=== PATIENT | female | born 1990 | race Caucasian/White ===

== ENCOUNTER → 2021-11-30 | Outpatient (CLI) | payer OTHER ==
--- NOTE | 2021-11-30 17:22 | XR ---
EXAMINATION TYPE: XR thoracic spine 2V DATE OF EXAM: 11/30/2021 5:15 PM INDICATION: Patient age:Female; 31 years old; Reason for study: S46.212D; back pain COMPARISON: None TECHNIQUE: 2 views of the thoracic spine in Frontal and lateral projections. FINDINGS: No evidence of acute fracture. There is no evidence of significant disk space narrowing or loss of v ertebral body height. There is normal alignment of the thoracic vertebral bodies. IMPRESSION: No acute osseous pathology.
--- NOTE | 2021-11-30 17:23 | XR ---
EXAMINATION TYPE: XR shoulder complete LT DATE OF EXAM: 11/30/2021 5:15 PM INDICATION: Patient age:Female; 31 years old; Reason for study: S46.212D; pain COMPARISON: None TECHNIQUE: The left shoulder was examined in AP, internally rotated and axillary projections. FINDINGS: No evidence of acute osseous pathology, joint dislocation, or soft tissue swelling. The remaining por tions of the visualized chest are unremarkable. IMPRESSION: No acute osseous pathology.
== END | disposition home or self-care (01) ==
LOC: RADXRMAIN 16:45
PROVIDERS: ATTEND Emergency Medicine
DX: S46.212D Strain of muscle, fascia and tendon of other parts of biceps, left arm, subsequent encounter (principal); X58.XXXD Exposure to other specified factors, subsequent encounter
CPT/HCPCS: 72070

== ENCOUNTER 2023-10-18 04:42 | Emergency (ER) | payer BC ==
[2023-10-18 05:10] VITALS: RESP 18
[2023-10-18] MEDS: SODIUM CHLORIDE 0.9% 1,000 ML IV STA (06:07)
[2023-10-18] MEDS: ONDANSETRON 4 MG/2 ML VIAL IVP STA (06:08)
[2023-10-18] MEDS: IBUPROFEN 600 MG TAB PO STA (06:21)
[2023-10-18 06:31] LABS: ALT 18 U/L (4-34); AST 25 U/L (14-36); African American GFR (CKD) >90 (>60 ml/min/1.73 sqM); Albumin 4.4 g/dL (3.5-5.0); Alkaline Phosphatase 55 U/L (38-126); Anion Gap 10 mmol/L; Blood Urea Nitrogen 9 mg/dL (7-17); Calcium 9.2 mg/dL (8.4-10.2); Carbon Dioxide 22 mmol/L (22-30); Chloride 102 mmol/L (98-107); Glucose 112 mg/dL (74-99); Non-African American GFR(CKD) >90 (>60 ml/min/1.73 sqM); Potassium 3.7 mmol/L (3.5-5.1); Sodium 134 mmol/L (137-145); Total Bilirubin 0.8 mg/dL (0.2-1.3); Total Protein 7.3 g/dL (6.3-8.2)
[2023-10-18 07:13] LABS: HCT 40.5 % (34.0-46.0); HGB 14.7 gm/dL (11.4-16.0); MCH 34.1 pg (25.0-35.0); MCHC 36.2 g/dL (31.0-37.0); Mean Platelet Volume 8.1; Platelet Count 247 k/uL (150-450); RBC 4.31 m/uL (3.80-5.40); RDW 12.2 % (11.5-15.5); WBC 5.1 k/uL (3.8-10.6)
--- NOTE | 2023-10-18 07:35 | ED ---
URI HPI - General Chief Complaint: Upper Respiratory Infection Stated Complaint: Nausea, Diarrhea, Chills, Body Aches Time Seen by Provider: 10/18/23 04:50 Source: patient Mode of arrival: ambulatory Limitations: no limitations - History of Present Illness Initial Comments: 33-year-old female presents to the emergency department reporting myalgias, sore throat, fever. States that her symptoms started this evening. Denies any sick contacts. Did not take any medications for symptoms before coming in. She denies any chest pain. No vomiting. Denies concern for . No other alleviating, precipitating or modifying factors - Related Data Previous Rx's Medication Instructions Recorded Ondansetron HCl [Zofran] 4 mg PO Q6HR PRN #10 tab 10/12/15 Docusate [Colace] 100 mg PO DAILY #20 capsule 10/19/15 Ondansetron Odt [Zofran Odt] 4 mg PO Q8HR PRN #20 tab 10/18/23 Allergies Allergy/AdvReac Type Severity Reaction Status Date / Time bromide salts [Manlius] Allergy Unknown Verified 10/18/23 04:47 Review of Systems ROS Statement: Those systems with pertinent positive or pertinent negative responses have been documented in the HPI. ROS Other: All systems not noted in ROS Statement are negative. 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 Absent: scleral icterus, conjunctival injection, periorbital swelling ENT exam: Present: normal exam, mucous membranes moist Neck exam: Present: normal inspection. Absent: tenderness, meningismus, lymphadenopathy Respiratory exam: Present: normal lung sounds bilaterally. Absent: respiratory distress, wheezes, rales, rhonchi, stridor Cardiovascular Exam: Present: regular rate, normal rhythm, normal heart sounds. Absent: systolic murmur, diastolic murmur, rubs, gallop, clicks GI/Abdominal exam: Present: soft, normal bowel sounds. Absent: distended, tenderness, guarding, rebound, rigid Extremities exam: Present: normal inspection, full ROM, normal capillary refill. Absent: tenderness, pedal edema, joint swelling, calf tenderness Back exam: Present: normal inspection Neurological exam: Present: alert, oriented X3, CN II-XII intact Psychiatric exam: Present: normal affect, normal mood Skin exam: Present: warm, dry, intact, normal color. Absent: rash Course Vital Signs 10/18/23 10/18/23 10/18/23 04:45 05:38 07:48 Temperature 98 F 101.5 F H 99.8 F H Pulse Rate 89 84 Respiratory 18 18 Rate Blood Pressure 115/79 112/79 O2 Sat by Pulse 99 99 Oximetry Medical Decision Making - Medical Decision Making Was pt. sent in by a medical professional or institution (, PA, ASSEMBLER [employer], urgent c are, hospital, or skilled nursing...) When possible be specific @ -No Did you speak to anyone other than the patient for history (EMS, parent, family, police, friend...)? What history was obtained from this source @ -No Did you review nursing and triage notes (agree or disagree)? Why? @ -I reviewed and agree with nursing and triage notes Were old charts reviewed (outside hosp., previous admission, EMS record, old EKG, old radiological studies, urgent care reports/EKG's, skilled nursing records)? Report findings @ -No old charts were reviewed Differential Diagnosis (chest pain, altered mental status, abdominal pain women, abdominal pain men, vaginal bleeding, weakness, fever, dyspnea, syncope, headache, dizziness, GI bleed, back pain, seizure, CVA, palpatations, mental health, musculoskeletal)? @ -Differential Fever: Pneumonia, viral URI, endocarditis, myocarditis, pericarditis, otitis, sinusitis, peritonsillar Abscess, retropharyngeal Abscess, epiglottitis, peritonitis, appendicitis, Aleena cystitis, diverticulitis, hepatitis, colitis, UTI, PID, TOA, pyelonephritis, prostatitis, epididymitis, meningitis, encephalitis, pulmonary embolism, CVA, thyroid storm, pancreatitis, adrenal crisis, cavernous sinus thrombosis, this is not meant to be an all-inclusive list. EKG interpreted by me (3pts min.). @ -Not done X-rays interpreted by me (1pt min.). @ -None done CT interpreted by me (1pt min.). @ -None done U/S interpreted by me (1pt. min.). @ -None done What testing was considered but not performed or refused? (CT, X-rays, U/S, labs)? Why? @ -None What meds were considered but not given or refused? Why? @ -None Did you discuss the management of the patient with other professionals (professionals i.e. , PA, [employer], lab, RT, psych nurse, social studies department chair, geospatial engineer, teacher, president and chief executive officer, showcase trimmer)? Give summary @ -No Was smoking cessation discussed for >3mins.? @ -No Was critical care preformed (if so, how long)? @ -No Were there social determinants of health that impacted care today? How? (Homelessness, low income, unemployed, alcoholism, drug addiction, tr ansportation, low edu. Level, literacy, decrease access to med. care, retirement, rehab)? @ -No Was there de-escalation of care discussed even if they declined (Discuss DNR or withdrawal of care, Hospice)? DNR status @ -No What co-morbidities impacted this encounter? (DM, HTN, Smoking, COPD, CAD, Cancer, CVA, ARF, Chemo, Hep., AIDS, mental health diagnosis, sleep apnea, morbid obesity)? @ -None Was patient admitted / discharged? Hospital course, mention meds given and route, prescriptions, significant lab abnormalities, going to OR and other pertinent info. @ -Discharge. Upon arrival patient given Zofran and Motrin. She is swabbed for the viral panel. Patient is influenza A positive. Patient administered IV fluids. Results are discussed with the patient. Did offer Tamiflu however patient refused. Patient will be discharged home at this time. Instructed to alternate taking Motrin Tylenol for pain. Follow-up with her doctor and return for any new or worsening symptoms Undiagnosed new problem with uncertain prognosis? @ -No Drug Therapy requiring intensive monitoring for toxicity (Heparin, Nitro, Insulin, Cardizem)? @ -No Were any procedures done? @ -No Diagnosis/symptom? @ -Acute myalgias, acute nausea, influenza A Acute, or Chronic, or Acute on Chronic? @ -Acute Uncomplicated (without systemic symptoms) or Complicated (systemic symptoms)? @ -Complicated Side effects of treatment? @ -No Exacerbation, Progression, or Severe Exacerbation? @ -No Poses a threat to life or bodily function? How? (Chest pain, USA, ME, pneumonia, PE, COPD, DKA, ARF, appy, cholecystitis, CVA, Diverticulitis, Homicidal, Suicidal, threat to staff... and all critical care pts) @ -No - Lab Data Result diagrams: 10/18/23 05:46 10/18/23 05:46 Lab Results 10/18/23 10/18/23 10/18/23 Range/Units 04:50 05:46 05:46 WBC 5.1 (3.8-10.6) k/uL RBC 4.31 (3.80-5.40) m/uL Hgb 14.7 (11.4-16.0) gm/dL Hct 40.5 (34.0-46.0) % MCV 94.0 (80.0-100.0) fL MCH 34.1 (25.0-35.0) pg MCHC 36.2 (31.0-37.0) g/dL RDW 12.2 (11.5-15.5) % Plt Count 247 (150-450) k/uL MPV 8.1 Neutrophils % (Manual) 60 % Band Neuts % (Manual) 3 % Lymphocytes % (Manual) 22 % Monocytes % (Manual) 14 % Eosinophils % (Manual) 1 % Neutrophils # (Manual) 3.20 (1.3-7.7) k/uL Lymphocytes # (Manual) 1.12 (1.0-4.8) k/uL Monocytes # (Manual) 0.71 (0-1.0) k/uL Eosinophils # (Manual) 0.05 (0-0.7) k/uL Nucleated RBCs 0 (0-0) /100 WBC Manual Slide Review Performed Sodium 134 L (137-145) mmol/L Potassium 3.7 (3.5-5.1) mmol/L Chloride 102 (98-107) mmol/L Carbon Dioxide 22 (22-30) mmol/L Anion Gap 10 mmol/L BUN 9 (7-17) mg/dL Creatinine 0.60 (0.52-1.04) mg/dL Est GFR (CKD-EPI)AfAm >90 (>60 ml/min/1.73 sqM) Est GFR (CKD-EPI)NonAf >90 (>60 ml/min/1.73 sqM) Glucose 112 H (74-99) mg/dL Calcium 9.2 (8.4-10.2) mg/dL Total Bilirubin 0.8 (0.2-1.3) mg/dL AST 25 (14-36) U/L ALT 18 (4-34) U/L Alkaline Phosphatase 55 (38-126) U/L Total Protein 7.3 (6.3-8.2) g/dL Albumin 4.4 (3.5-5.0) g/dL Influenza Type A (PCR) Detected A (Not Detectd) Influenza Type B (PCR) Not Detected (Not Detectd) RSV (PCR) Not Detected (Not Detectd) SARS-CoV-2 (PCR) Not Detected (Not Detectd) Disposition Clinical Impression: Influenza A, Myalgia, Fever Disposition: HOME SELF-CARE Condition: Stable Instructions (If sedation given, give patient instructions): Influenza (ED) Additional Instructions: Please alternate taking Motrin (600 mg) and Tylenol (650 mg) every 4 hours. Use the Zofran as needed for nausea. Follow-up with your doctor. Return for any new or worsening symptoms Prescriptions: Ondansetron Odt [Zofran Odt] 4 mg PO Q8HR PRN #20 tab PRN Reason: Nausea Is patient prescribed a controlled substance at d/c from ED?: No Referrals: Bon Grimaldo MD [Primary Care Provider] - 1-2 days Time of Disposition: 07:34
[2023-10-18] MEDS: ONDANSETRON 4 MG ODT STARTER PACK 2 TAB BTL PO STA (07:42)
[2023-10-18 07:52] LABS: Band Neutrophils % 3 %; Eosinophils # (M) 0.05 k/uL (0-0.7); Lymphocytes # (M) 1.12 k/uL (1.0-4.8); Monocytes # (M) 0.71 k/uL (0-1.0); Neutrophils % (M) 60 %; Nucleated Red Blood Cells 0 /100 WBC (0-0); Total Cells Counted 100
[2023-10-18 08:06] VITALS: BP 112/79; PULSE 84; TEMP 99.8
== END 2023-10-18 08:00 | disposition home or self-care (01) ==
LOC: EC 04:42
DX: J10.1 Influenza due to other identified influenza virus with other respiratory manifestations (principal); M79.10 Myalgia, unspecified site; F17.200 Nicotine dependence, unspecified, uncomplicated; F12.90 Cannabis use, unspecified, uncomplicated; Z88.8 Allergy status to other drugs, medicaments and biological substances; Z20.822 Contact with and (suspected) exposure to COVID-19
CPT/HCPCS: 36415; 80053; 85025; 87636; 99284; 96374; 96361 ×2; J2405; S0119

== ENCOUNTER → 2024-06-17 | Outpatient (CLI) | payer BC ==
--- NOTE | 2024-06-17 11:03 | CT ---
EXAMINATION TYPE: CT angio chest DATE OF EXAM: 06/17/2024 8:13 AM COMPARISON: 814 HISTORY: family history of aneurysm CT DLP: 339 mGycm Automated exposure control for dose reduction was used. CONTRAST: CTA scan of the thorax is performed with IV Contrast, patient injected with 100 mL of Isovue 370, pul monary embolism protocol. . FINDINGS: Aorta: The aorta is of normal course and caliber with no evidence of aneurysm. Maximum dimension of 3 .1 cm. LUNGS: The lungs are grossly clear, there is no concerning parenchymal mass or nodule identified. T here is no pleural effusion or pneumothorax seen. The tracheobronchial tree is patent. Biapical pleu ral thickening or scarring. MEDIASTINUM: There is satisfactory enhancement of the pulmonary artery and its branches, there is no CT evidence for pulmonary embolism. There are no greater than 1 cm hilar or mediastinal lymph nodes. No pericardial effusion is seen. Residual thymic tissue noted. OTHER: There is a large area of hyperdense lesion right lobe liver likely on the basis of a flash he mangioma. Recommend dedicated CT abdomen pelvis as this is only partially included in the field-of-vi ew and new from prior exam. Additional 4 mm left hepatic hypodense lesion most likely on the basis of tiny cyst. IMPRESSION: 1. No evidence of aortic aneurysm 2. Lobulated hyperdense right hepatic lobe lesion measuring 2 cm partially included in the field-of-v iew. Most likely on the basis of flash hemangioma. Recommend correlation with dedicated CT abdomen an d pelvis for complete evaluation. [facility], , 06/17/2024 11:01 AM
== END | disposition home or self-care (01) ==
LOC: RADCTMAIN 07:48
PROVIDERS: ATTEND Family Medicine
DX: Z82.49 Family history of ischemic heart disease and other diseases of the circulatory system
CPT/HCPCS: 71275

== ENCOUNTER → 2024-07-03 | Outpatient (CLI) | payer BC ==
--- NOTE | 2024-07-03 18:37 | CT ---
EXAMINATION TYPE: CT abdomen pelvis w con CT DLP: 359.6 mGycm, Automated exposure control for dose reduction was used. 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 TECHNIQUE: Axial CT abdomen pelvis w con;Sagittal and coronal reformats were created on a separate w orkstation. Contrast used:80 ml mL of Isovue 300 with IV Contrast, (none if empty) Oral contrast used: with Oral Contrast (none if empty) FINDINGS: LOWER CHEST: Unremarkable ABDOMEN LIVER: Arterial phase focus of enhancement with somewhat wedge-shaped in the right hepatic lobe possi krystal representing shunting phenomenon. This becomes isoattenuating to liver on delayed imaging. Additi onal simple appearing cysts present. GALLBLADDER AND BILE DUCTS: Unremarkable. PANCREAS: Unremarkable. SPLEEN: Unremarkable. ADRENAL GLANDS: Unremarkable. KIDNEYS AND URETERS: No evidence of hydronephrosis or renal calculus. The ureters are unremarkable. PELVIS BLADDER: Unremarkable REPRODUCTIVE: Unremarkable. ABDOMEN & PELVIS STOMACH AND BOWEL: No evidence of bowel obstruction. PERITONEUM/RETROPERITONEUM: No evidence of pneumoperitoneum or free fluid. VASCULATURE: No evidence of aortic aneurysm. MUSCULOSKELETAL: No acute osseous abnormalities LYMPH NODES: No gross evidence for lymphadenopathy. SOFT TISSUE/ABDOMINAL WALL: Unremarkable IMPRESSION: Hepatic lbe lesion favored represent shunt phenomenon. No suspicious liver lesions. [facility], , 07/03/2024 6:35 PM
== END | disposition home or self-care (01) ==
LOC: RADCTMAIN 16:01
PROVIDERS: ATTEND Family Medicine
DX: D18.03 Hemangioma of intra-abdominal structures (principal)
CPT/HCPCS: 74177